=== PATIENT | male | born 1955 | race Caucasian/White ===

== ENCOUNTER 2022-06-23 07:24 | Day surgery (SDC) | payer MEDICARE ==
[~2022-06-23 07:24] MED LIST: Lactated Ringers 1,000 ML IV SCH; Lidocaine 1%/Sod Bicarbonate in NS 8.4% 1 ML Syringe IDERM PRN; Sodium Chloride 0.9% 10 ML Syringe FLUSH PRN; Sodium Chloride 0.9% 10 ML Syringe FLUSH SCH
[2022-06-23] MEDS ORDERED: Ondansetron 4 MG/2 ML SDV IVPUSH PRN (07:57)
[2022-06-23] MEDS ORDERED: Propofol 200 MG/20 ML SDV ONE ×2 (08:07→08:08)
[2022-06-23] MEDS ORDERED: Midazolam 1 MG/ML 2 ML SDV ONE (08:07)
[2022-06-23] MEDS ORDERED: Lidocaine 1% 5 ML VIAL ONE (08:07)
== END 2022-06-23 09:15 | disposition home or self-care (01) ==
LOC: JD.SDS 07:24
PROVIDERS: ATTEND Surgery
DX: R19.5 Other fecal abnormalities (principal); K64.8 Other hemorrhoids; K64.4 Residual hemorrhoidal skin tags; I12.9 Hypertensive chronic kidney disease with stage 1 through stage 4 chronic kidney disease, or unspecified chronic kidney disease; N18.30 Chronic kidney disease, stage 3 unspecified; K21.9 Gastro-esophageal reflux disease without esophagitis; Z79.899 Other long term (current) drug therapy; Z98.890 Other specified postprocedural states; Z96.659 Presence of unspecified artificial knee joint
CPT/HCPCS: 45378; J2250; J2704; J7120; 00811; J3490

== ENCOUNTER 2024-05-29 06:30 | Day surgery (SDC) | payer MEDICARE, OTHER ==
[~2024-05-29 06:30] MED LIST changes: -Lactated Ringers 1,000 ML IV SCH; -Lidocaine 1%/Sod Bicarbonate in NS 8.4% 1 ML Syringe IDERM PRN
[2024-05-29] MEDS: Lactated Ringers 1,000 ML IV SCH (06:45)
[2024-05-29] MEDS ORDERED: fentaNYL 100 MCG/2 ML SDV ONE (06:56)
[2024-05-29] MEDS ORDERED: Midazolam 1 MG/ML 2 ML SDV ONE (06:56)
[2024-05-29] MEDS ORDERED: propofoL 500 MG/50 ML 50 ML ONE (06:56)
[2024-05-29] MEDS ORDERED: Ketorolac 30 MG/ML SDV ONE (06:57)
[2024-05-29] MEDS ORDERED: Ropivacaine 0.5% 5 MG/ML 30 ML SDV ONE (06:57)
[2024-05-29] MEDS ORDERED: ceFAZolin 2 GM Vial ONE (06:57)
[2024-05-29] MEDS ORDERED: Dexamethasone 4 MG/ML 5 ML MDV ONE (06:57)
[2024-05-29] MEDS ORDERED: Chloroprocaine 3% 30 MG/ML 20 ML SDV ONE (07:00)
[2024-05-29] MEDS: Acetaminophen 325 MG Tab PO ONE (07:38)
[2024-05-29] MEDS: oxyCODONE ER 10 MG TAB.ER PO ONE (07:38)
[2024-05-29] MEDS: Pregabalin 25 MG Cap PO ONE (07:38)
[2024-05-29] MEDS ORDERED: ePHEDrine 50 MG/ML SDV ONE (08:03)
[2024-05-29] MEDS ORDERED: Lactated Ringers 1,000 ML ONE (08:10)
[2024-05-29] MEDS ORDERED: Ondansetron 4 MG/2 ML SDV IVPUSH PRN (08:35)
[2024-05-29] MEDS ORDERED: HYDROmorphone 0.5 MG/0.5 ML Syringe IVPUSH PRN (08:35)
[2024-05-29] MEDS ORDERED: fentaNYL 100 MCG/2 ML SDV IVPUSH PRN (08:35)
[2024-05-29] MEDS ORDERED: Propofol 200 MG/20 ML SDV ONE ×2 (08:43→09:09)
[2024-05-29] MEDS: Morphine 8 MG, EPINEPHrine 0.3 MG, Cefuroxime 750 MG, Ketorolac 30 MG, Sodium Chloride ... PRN (09:17)
[2024-05-29] MEDS: VANCOmycin 1 GM SDV ONE (09:23)
[2024-05-29] MEDS: Tranexamic Acid 1,000 MG/10 ML Vial ONE (09:23)
[2024-05-29] MEDS: oxyCODONE 5 MG Tab PO PRN (10:52)
== END 2024-05-29 12:34 | disposition home or self-care (01) ==
LOC: JD.SDS 06:30
PROVIDERS: ATTEND Orthopaedic Surgery
DX: T84.093A Other mechanical complication of internal left knee prosthesis, initial encounter (principal); T84.84XA Pain due to internal orthopedic prosthetic devices, implants and grafts, initial encounter; I12.9 Hypertensive chronic kidney disease with stage 1 through stage 4 chronic kidney disease, or unspecified chronic kidney disease; N18.9 Chronic kidney disease, unspecified; K21.9 Gastro-esophageal reflux disease without esophagitis; Z96.652 Presence of left artificial knee joint; Z79.899 Other long term (current) drug therapy
CPT/HCPCS: 27487; 73560; 97110; 97116; 97161; A9270; C1713; C1776; J0171; J0690; J0697; J1100; J1885; J2250; J2272; J2401; J2704; J2795; J3010; J7120; 01402; 64447; 64450; J3490

== ENCOUNTER 2024-06-19 11:55 | Day surgery (SDC) | payer MEDICARE, OTHER ==
[~2024-06-19 11:55] MED LIST changes: +Lactated Ringers 1,000 ML IV SCH
[2024-06-19] MEDS ORDERED: Bupivacaine 0.25% 10 ML SDV ONE (12:22)
[2024-06-19] MEDS ORDERED: ceFAZolin 2 GM Vial ONE (12:34)
[2024-06-19] MEDS: ceFAZolin 2 GM Vial IVPUSH ONE (12:43)
[2024-06-19] MEDS: Bupivacaine 0.25% 10 ML SDV ONE (13:09)
[2024-06-19] MEDS: Lidocaine 1% 20 ML MDV ONE (13:09)
[2024-06-19] MEDS: EPINEPHrine 1 MG/ML SDV ONE (13:09)
== END 2024-06-19 13:25 ==
LOC: JD.SDS 11:55
PROVIDERS: ATTEND Orthopaedic Surgery
DX: S80.252A Superficial foreign body, left knee, initial encounter (principal); Z79.82 Long term (current) use of aspirin; Z79.899 Other long term (current) drug therapy; Z96.652 Presence of left artificial knee joint
CPT/HCPCS: 10120; J0171; J0665; J0690; J3490